=== PATIENT | male | born 1965 | race Caucasian/White ===

== ENCOUNTER 2024-02-04 14:27 | Emergency (ER) | payer BC, SELFPAY ==
[2024-02-04 14:34] VITALS: BP 111/75
--- NOTE | 2024-02-04 15:07 | ED.GENMED ---
History of Present Illness
General
Chief Complaint: Abdominal Pain
Time Seen by Provider: 02/04/24 14:59
Travel History
Have you had any contact with someone who has COVID-19?: No
Do you have any symptoms of coronavirus? Fever > 100 degrees, chills, cough, shortness of breath, sore throat, loss of taste or smell, muscle aches, or headache?: No
History of Present Illness
History of Present Illness:
58-year-old male with history of hypertension and hyperlipidemia presents to the emergency department for evaluation of suprapubic and left lower quadrant abdominal pain over the past 4 to 5 days. Patient was seen in urgent care today and had lab
work showing a white blood cell count of 12,000 and normal BUN/creatinine. He was sent the emergency department for a CT scan. No history of abdominal surgery. Did have a fever 101 Fahrenheit last night but this resolved without medication today
Past History
Past History
ED Past Medical History: HTN and Hypercholesterolemia
ED Past Surgical History: None
Social History
Tobacco: Non-smoker
Alcohol: None
Drug: None
Living: with family
Employment: Employed
Review of Systems
Review of Systems
Allergies reviewed?: Yes
All Other Systems: ROS reviewed and negative except as documented in HPI and ROS
Phy Exam
Physical Exam
Physical Exam:
GEN: Well appearing, NAD, WDWN
Eyes: PERRLA, EOMs intact, no scleral icterus
HENT: NCAT, oral mucosa moist
Lungs: CTAB, no wheezes, rales, rhonchi, normal chest wall excursion
Cardiac: RRR, no M/R/G, no peripheral edema. Radial pulses 2+ bilat
Abdomen: Soft, focal tenderness to the suprapubic and left lower quadrant, no rigidity or peritoneal signs
Neuro: AO x 3
MSK: No gross deformity or ecchymosis. No edema. No digital clubbing
Skin: No rashes, petechiae. Normal color, no pallor or jaundice.
Psych: Calm, cooperative, proper hygiene
Course
Orders/Labs/Results
Orders:
Orders
02/04/24 15:07
CT Abd/Pel (IV only)-[facility] only Urgent
Comment:
Reason For Exam: LLQ/suprapubic pain
IV Insert/Care/Rem.- Treatment PRN
02/04/24 16:26
Amoxicillin 875 mg/Clav 125 mg [Augmentin 875 mg/125 mg] 1 tablet PO NOW STA
Vital Signs
Initial and Last Documented VS:
Initial Vital Signs
Temp Pulse Resp BP Pulse Ox
98.9 F 86 17 111/75 99
02/04/24 14:34 02/04/24 14:34 02/04/24 14:34 02/04/24 14:34 02/04/24 14:34
Last Documented Vital Signs
Temp Pulse Resp BP Pulse Ox
98.9 F 86 17 111/75 99
02/04/24 14:34 02/04/24 14:34 02/04/24 14:34 02/04/24 14:34 02/04/24 14:34
MDM/Problems Addressed
MDM/Problems Addressed:
CT shows acute diverticulitis with no perforation or abscess. Patient's labs reviewed from outside urgent care, no significant abnormalities. Will start the patient on Augmentin, clear liquid diet advised, return parameters discussed
Comment
Comment:
Pt had labs done at [facility] today, notable for WBC 12.7, BUN 14, Creat 1.1, negative UA
*Critical Care Note
Total Time (30-74mins, 75-104mins- exclusive of procedures): Not Applicable
ED Attending Note
-
Portions of this chart may have been created with voice recognition software.� Occasional wrong word or��sound alike� substitutions may have occurred due to the inherent limitations of voice recognition software.
Discharge Plan
Departure
Patient Disposition: Home (Routine Discharge)
Date of Disposition: 02/04/24
Time of Disposition: 16:27
Patient with high blood pressure during this ER visit?: No
Discharge Problem:
Acute diverticulitis
Instructions: Diverticulitis (DC), Clear Liquid Diet
Prescriptions:
New
amoxicillin-pot clavulanate 875-125 mg tablet
1 tab PO BID Qty: 19 0RF
No Action
amlodipine 5 mg Tablet
5 mg PO DAILY
simvastatin 40 mg Tablet
40 mg PO DAILY
nicotine 21 mg/24 hr Patch 24 Hour
21 mg transdermal DAILY 7 Days Qty: 7 0RF
albuterol sulfate [Ventolin HFA] 90 mcg/actuation HFA aerosol inhaler
2 puff inhalation Q6H PRN (Reason: shortness of breath or wheezing) 30 Days Qty: 6.7 0RF
prednisone 10 mg tablet
40 mg PO DAILY 8 Days Qty: 20 0RF
Rx Instructions:
40mg daily 2 days then
30mg daily 2 days then
20mg daily 2 days then
10mg daily 2 days then stop
cefdinir 300 mg capsule
300 mg PO Q12H 5 Days Qty: 10 0RF
Referrals:
Sunshine Mike, DO [Family Provider] -
Interventions
Interventions:
*Risk Screen - Suicide Last Done: 02/04/24 15:13
*General Assessment Last Done: 02/04/24 15:13
*Neglect/Abuse Screening Last Done: 02/04/24 15:13
ED- Fall Risk Assessment Last Done: 02/04/24 15:26
*ED COVID-19 Vaccine History Last Done: 02/04/24 14:35
*Nursing Disposition Last Done: 02/04/24 16:36
DM-Rbagdu-Eyfwezhuqm Assessment Last Done: 02/04/24 15:13
Discharge Date and Time
Discharge Date/Time: 02/04/24 16:37
[2024-02-04 15:13] VITALS: BMI 28.2
[2024-02-04] MEDS: AUGMENTIN 875 MG/125 MG 1 TABLET PO (16:30)
== END 2024-02-04 16:37 | disposition home or self-care (01) ==
LOC: EMR 14:27
PROVIDERS: EMERGENCY PHYSICIAN Student in an Organized Health Care Education/Training Program; FAMILY PHYSICIAN Family Medicine
DX: K57.92 Diverticulitis of intestine, part unspecified, without perforation or abscess without bleeding (principal); I10 Essential (primary) hypertension; E78.00 Pure hypercholesterolemia, unspecified
CPT/HCPCS: 99285; 74177; Q9967